=== PATIENT | female | born 1965 | race Caucasian/White ===

== ENCOUNTER → 2018-11-09 | Outpatient (REF) | payer BC | LOC: M LAB REF 16:32 | PROVIDERS: ATTEND Nurse Practitioner Adult Health | DX: E03.9 Hypothyroidism, unspecified (principal) ==

== ENCOUNTER → 2019-03-01 | Outpatient (REF) | payer BC ==
[2019-03-03 14:25] LABS: ANTINUCLEAR ANTIBODIES DIRECT Negative (Negative)
== END ==
LOC: M LAB REF 17:03
PROVIDERS: ATTEND Nurse Practitioner Adult Health
DX: H44.131 Sympathetic uveitis, right eye (principal); R68.2 Dry mouth, unspecified

== ENCOUNTER → 2021-12-02 | Outpatient (CLI) | payer BC | LOC: M WUC 13:11 | PROVIDERS: ATTEND Nurse Practitioner Adult Health | DX: M25.532 Pain in left wrist (principal); M25.432 Effusion, left wrist ==

== ENCOUNTER → 2022-08-30 | Outpatient (REF) | payer BC ==
[2022-08-30 17:39] LABS: FREE T3 3.3 PG/ML (2.3-4.2)
== END ==
LOC: M LAB REF 16:15
PROVIDERS: ATTEND Nurse Practitioner Adult Health
DX: E03.9 Hypothyroidism, unspecified (principal)

== ENCOUNTER → 2024-04-17 | Outpatient (CLI) | payer OTHER | LOC: M CARPUL 14:03 | PROVIDERS: ATTEND Nurse Practitioner Adult Health | DX: R00.0 Tachycardia, unspecified (principal) ==

== ENCOUNTER → 2024-04-24 | Outpatient (CLI) | payer OTHER | LOC: M WUC 14:50 | PROVIDERS: ATTEND Nurse Practitioner Adult Health | DX: M25.571 Pain in right ankle and joints of right foot (principal) ==

== ENCOUNTER → 2025-04-24 | Outpatient (REF) | payer OTHER ==
[2025-05-01 21:03] LABS: LYME TOTAL ANTIBODY CIA <= 0.90 Index (<=0.90)
[2025-05-04 08:48] LABS: BORRELIA SPECIES DNA NOT DETECTED (NOT DETECT)
== END ==
LOC: M LAB REF 14:28
PROVIDERS: ATTEND Nurse Practitioner Adult Health
DX: Z11.9 Encounter for screening for infectious and parasitic diseases, unspecified (principal); M25.562 Pain in left knee